=== PATIENT | male | born 1960 | race Caucasian/White ===

== ENCOUNTER 2019-08-11 08:47 | Inpatient (IN) ==
--- NOTE | 2019-08-05 09:51 | Anesthesiology Consultation ---
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 He denies traveling to any big cities or endemic areas. His company also has strict guidelines in which he follows (wears masks, social distances, does not go to any sites that have had positive Covid employees). No known contact with PUIs or Covid positive people. No current Covid related symptoms or history of Covid testing. Did discuss with Dr. Zambrano, since patient has not traveled to endemic areas and takes all precautions, will allow patient to proceed with surgery at this time pending his pre op labs show no significant issues History Surgery Operation Date: 08/11/19 11:35 Proposed Procedures p Left Total Knee Arthroplasty - Richie Pena MD Height/Weight Height: 6 ft Weight: 96.162 kg Allergies Allergy/AdvReac Type Severity Reaction Status Date / Time diclofenac Allergy Intermediate ITCHY, Verified 08/05/19 08:22 PASSED OUT Medications Home Medications Medication Instructions Recorded Confirmed Last Taken naproxen sodium [Aleve] 220 mg PO Q12H PRN 05/20/19 08/05/19 Unknown multivitamin 1 tab PO DAILY 08/05/19 08/05/19 Unknown Past Medical History Medical History DJD (degenerative joint disease) of knee Past Family History Family History Other No significant family history Past Surgical History Surgical History Hx of colonoscopy Hx of meniscectomy of right knee Hx of tonsillectomy Social History Smoking Status: Former smoker tobacco type: cigarettes Do You Dip or Chew Tobacco: No Smoking End Date: QUIT OVER 30 YEARS AGO Hx Alcohol Use: Yes Alcohol type: beer and hard liquor alcohol intake frequency: a few times a month Hx Substance Use: No Testing Electrocardiogram Date: 05/26/19 Findings: + NSR @ (72) Chest X-Ray Date: 05/26/19 Minimal left lung base opacities suggest atelectasis/scarring. Mild convex left curvature of the upper thoracic spine. Degenerative changes of the shoulders and spine. IMPRESSION: No acute process.
--- NOTE | 2019-08-05 15:03 | Communication Note ---
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 He has been to rural areas and denies any travel to any major [place] or [place] city. Given that he hasn't been to an endemic area felt it was appropriate to undergo surgery on 08/11/2019. He is a TKA so SAB could avoid general anesthesia and the subsequent 20/20 minute precaution. Having said that, ultimately it will be up to the discretion of the attending anesthesiologist if any additional precautions are warranted.
--- NOTE | 2019-08-08 14:59 | History & Physical Report ---
Date of Service August 08, 2019 Assessment & Plan (1) Primary osteoarthritis of left knee: Treatment options were discussed with the patient. Risks, benefits and alternatives to surgery including but not limited to infection, DVT, pain, stiffness, need for revision surgery, damage to blood vessels, damage to nerves, PE, , were discussed with the patient and they wish to proceed. Plan will be for left total knee arthroplasty on 08/11/19 at [facility]. Likely will proceed with right knee 1 month post left knee surgery if able. Surgery was rescheduled from May due to COVID-19 pandemic. Current COVID-19 status is unknown. Plan will be for aspirin 81mg BID x 30 days post operatively. Will plan on outpatient PT. All questions answered. He will follow up post operatively. History of Present Illness Chief Complaint: Left knee pain Primary Care Provider: Angelina Mendez DO Patient is a 58 year old male with no significant past medical history who presents to the office with bilateral knee pain. Pain is affecting his ability to carry out daily and leisure activities. He has failed conservative measures including anti-inflammatory medications, cortisone injections, and viscoelastic injections. He would like to proceed with left knee replacement. Patient denies headaches, sweats, fevers, chills, double vision, blurred vision, cough, sore throat, dysphagia, chest pain, sob, wheezing, n/v/d/c, numbness, tingling, fatigue, urinary symptoms, mood disorders. ROS positive for bilateral knee pain and stiffness. Allergies Allergy/AdvReac Type Severity Reaction Status Date / Time diclofenac Allergy Intermediate ITCHY, Verified 08/05/19 08:22 PASSED OUT Home Medications Home Medications Medication Instructions Recorded Confirmed Type naproxen sodium [Aleve] 220 mg PO Q12H PRN 05/20/19 08/05/19 History multivitamin 1 tab PO DAILY 08/05/19 08/05/19 History Past Med/Surg History Medical History DJD (degenerative joint disease) of knee Surgical History Hx of colonoscopy Hx of meniscectomy of right knee Hx of tonsillectomy Family History Other No significant family history Social History Preferred Language: Burundian Communication Ability: Effective Port Patrol Officer Required: No Beliefs That Will Affect Care: None Current Living Situation: Family Feels Safe at Home: Yes Smoking Status: Former smoker Tobacco Type: cigarettes ; Second Hand Exposure: No ; Hx Alcohol Use: Yes Alcohol type: beer and hard liquor Hx Substance Use: No Review of Systems All systems reviewed & are unremarkable except as noted in HPI & below Physical Exam Constitutional: well developed and well nourished; no acute distress Eyes: PERRL, conjunctivae normal, anicteric sclerae ENMT: external ear and nose normal, oropharynx normal Neck: trachea midline, no thyromegaly Respiratory: normal respiratory effort, lungs clear to auscultation Cardiovascular: RRR, no murmur, no edema Musculoskeletal: Left knee: Tenderness medial joint line. ROM 0-130 with crepitus. Stable to valgus and varus stress tests. Positive Nelly's. Varus alignment Skin: no rashes, warm and dry Neurologic: patellar DTR's 2+ bilat, sensation intact Psychiatric: A+Ox3, euthymic affect Results & Data Diagnostic Findings Left knee radiographs: Bone on bone medial compartment with periarticular osteophyte formation and subchondral sclerosis. Varus alignment
--- NOTE | 2019-08-10 13:30 | History & Physical Report ---
Date of Service August 10, 2019 Assessment & Plan (1) Primary osteoarthritis of right knee: Treatment options were discussed with the patient. Risks, benefits and alternatives to surgery including but not limited to infection, DVT, pain, stiffness, need for revision surgery, damage to blood vessels, damage to nerves, PE, , were discussed with the patient and they wish to proceed. Plan will be for right total knee arthroplasty on 08/11/19 at [facility]. Surgery was rescheduled from May due to COVID-19 pandemic. Current COVID-19 status is unknown. Plan will be for aspirin 81mg BID x 30 days post operatively. Will plan on outpatient PT. All questions answered. He will follow up post operatively. History of Present Illness Chief Complaint: Right knee pain Primary Care Provider: Angelina Mednez DO Patient is a 58 year old male with no significant past medical history who presents to the office with bilateral knee pain. Pain is affecting his ability to carry out daily and leisure activities. He has failed conservative measures including anti-inflammatory medications, cortisone injections, and viscoelastic injections. He would like to proceed with right knee replacement. Patient denies headaches, sweats, fevers, chills, double vision, blurred vision, cough, sore throat, dysphagia, chest pain, sob, wheezing, n/v/d/c, numbness, tingling, fatigue, urinary symptoms, mood disorders. ROS positive for bilateral knee pain and stiffness. Allergies Allergy/AdvReac Type Severity Reaction Status Date / Time diclofenac Allergy Intermediate ITCHY, Verified 08/05/19 08:22 PASSED OUT Home Medications Home Medications Medication Instructions Recorded Confirmed Type naproxen sodium [Aleve] 220 mg PO Q12H PRN 05/20/19 08/05/19 History multivitamin 1 tab PO DAILY 08/05/19 08/05/19 History Past Med/Surg History Medical History DJD (degenerative joint disease) of knee Surgical History Hx of colonoscopy Hx of meniscectomy of right knee Hx of tonsillectomy Family History Other No significant family history Social History Preferred Language: Greenlandic Communication Ability: Effective Charge Histotechnologist Required: No Beliefs That Will Affect Care: None Current Living Situation: Family Feels Safe at Home: Yes Smoking Status: Former smoker Tobacco Type: cigarettes ; Second Hand Exposure: No ; Hx Alcohol Use: Yes Alcohol type: beer and hard liquor Hx Substance Use: No Review of Systems All systems reviewed & are unremarkable except as noted in HPI & below Physical Exam Constitutional: well developed and well nourished; no acute distress Eyes: PERRL, conjunctivae normal, anicteric sclerae ENMT: external ear and nose normal, oropharynx normal Neck: trachea midline, no thyromegaly Respiratory: normal respiratory effort, lungs clear to auscultation Cardiovascular: RRR, no murmur, no edema Musculoskeletal: Right knee: Tenderness medial joint line. ROM 0-130 with crepitus. Stable to valgus and varus stress tests. Positive Nelly's. Varus alignment Skin: no rashes, warm and dry Neurologic: patellar DTR's 2+ bilat, sensation intact Psychiatric: A+Ox3, euthymic affect Results & Data Diagnostic Findings Right knee radiographs: Bone on bone medial compartment with periarticular osteophyte formation and subchondral sclerosis. Varus alignment
[~2019-08-11 08:47] MED LIST: ACETAMINOPHEN 500 MG TAB PO SCH; BUPIVACAINE 0.5 % 5 MG/1 ML PF 10ML VIAL ONE; CEFAZOLIN 2000MG 2,000 MG/15 ML SYR IV SCH; CeleBREX 200 MG CAP PO SCH; EPINEPHrine INJ 1 MG/ML AMP ONE; FAMOTIDINE 20 MG TAB PO SCH; GABAPENTIN 600 MG DOSE PO SCH; LR 500ML BOLUS, THEN 15ML/HR IV SCH; METOCLOPRAMIDE HCL 10 MG TABLET PO SCH; OXYCODONE HCL 10 MG TABCR (OXYCONTIN) PO SCH; ROPIVACAINE 0.5% 5 MG/ML 30 ML VIAL ONE; ROPIVACAINE 0.5% HCL/PF 150 MG, BUPIVACAINE 0.5% MPF 30 ML, EPINEPHrine 30MG/30ML (OR U... INFIL SCH; ROPIVACAINE 0.5% HCL/PF 150 MG, BUPIVACAINE 0.5% MPF 30 ML, EPINEPHrine 30MG/30ML (OR U... INSTIL SCH; TRANEXAMIC ACID 1,000 MG **IV Intra-op IV SCH; TRANEXAMIC ACID 1,000 MG **IV Pre-op IV SCH; TRANEXAMIC ACID 1,000 MG x 1 **For Topical Use TOP SCH; dexAMETHasone 4 MG TAB PO SCH
[2019-08-11] MEDS ORDERED: fentaNYL citrate 100 MCG/2 ML VIAL ONE (09:27)
[2019-08-11] MEDS ORDERED: PROPOFOL IV EMULSION 10 MG/ML 20 ML VIAL IV ONE ×4 (09:27→13:07)
[2019-08-11] MEDS ORDERED: LIDOCAINE HCL 2% 2 ML VIAL/AMP(20MG/ML) INFIL ONE (09:27)
[2019-08-11] MEDS ORDERED: MIDAZOLAM HCL 1 MG/ML 2ML VIAL ONE (09:27)
--- NOTE | 2019-08-11 10:13 | History & Physical Bridge Note ---
Date of Service August 11, 2019 History & Physical Bridge Note I have examined the patient, reviewed the History & Physical and in the interval since the performance of the History & Physical I have noted the following changes of clinical significance: Definitive plan is for the LEFT knee replacement
[2019-08-11] MEDS ORDERED: BACITRACIN INJ 50,000 UNIT VIAL ONE (10:57)
--- NOTE | 2019-08-11 13:15 | Operative Report ---
Post Operative Report Pre & Post Diagnosis Operation Date: 08/11/19 11:15 Pre-Op Diagnosis: LEFT KNEE OSTEOARTHRITIS Post-Op Diagnosis: LEFT KNEE OSTEOARTHRITIS I identified the patient and participated in the time-out.: Yes Procedure Operation Date: 08/11/19 11:15 Actual Procedures p Left Total Knee Arthroplasty(Left) - Richie Pena MD Surgeon Richie Pena MD Production Support Analyst Ismael Camacho PA-C Estimated Blood Loss 10 Findings Consistent with Post-Op Diagnosis Specimens Bone and tissue Drains None Anesthesia Type MAC Spinal Regional Complications none Disposition Accompanied Patient To Recovery: No Disposition: Recovery Room Indications The patient is a 58-year-old male with longstanding arthritic change in the left knee. He is [id number] medial compartment. He is failed conservative measures including injection, anti-inflammatories, rehab. He wishes to proceed with a left total knee arthroplasty Description of Procedure Risks benefits and alternatives of surgery including but not limited to infection, DVT, pain, stiffness, need for surgery, damage to blood vessels, damage to nerves or risks of anesthesia were discussed with the patient and they wished to proceed. The patient was identified and the laterality was confirmed and marked. They received a preoperative antibiotic as well as a spinal anesthetic and an abductor canal block. A well-padded tourniquet was applied and then the limb was prepped and draped in standard manner with ChloraPrep. The limb was exsanguinated and the tourniquet was inflated. I made a standard anterior incision. I sharply incised the skin then utilized Bovie electrocautery to achieve hemostasis. I made a medial parapatellar arthrotomy and mobilized the patella laterally. I then excised the anterior horns of the medial and lateral meniscus as well as the infrapatellar fat pad. I elevated a portion of the MCL off of the tibia. I then pinned into place a patient-matched distal femoral cutting guide. He had a significant preoperative flexion contracture of greater than 5 degrees. I therefore elected to take an additional 2 mm of distal femur. I made my distal femoral resection. I then pinned into place the 5 in 1 femoral cutting guide. I made my anterior, posterior and chamfer cuts. I then excised the cruciates and the remaining portions of the menisci. I then pinned into place a patient- matched tibial cutting guide and made my tibial resection. I then pinned into place the tibial plate a utilizing alignment nella to confirm rotation. I then cut for the post. Utilizing a lamina assistant brand manager and I then removed posterior osteophytes off the femur. I then placed a trial femur into position and cut for the trochlear component. I then sequentially trialed to size the polyethylene until there was good soft tissue balancing and range of motion. I then prepared the patella with a freehand cut utilizing sagittal saw. I sized and drilled for the patella. There was good tracking to the patella no lateral release was needed. All the trial components were removed. The deep tissues were anesthetized with an ortho mix solution. Then with Simplex HV with gentamicin cement, I cemented my definitive components. Definitive components, Marro[employer] Journey 2: Femur 7 Tibia 7 Poly 9 Patella 35 oval A betadine soak was performed. The arthrotomy was closed with interrupted #1 Vicryl suture subcutaneous tissue was closed with interrupted 2-0 Vicryl suture. The skin was closed with with ramu. An Acticoat and Joseph dressing were placed. Sterile dressings were applied. All needle and sponge counts were correct at the end of the procedure patient was transferred to the PACU in stable condition without apparent complication. The PA-C was necessary for assistance with procedure for assistance in positioning, prepping, draping, retraction and closure. I attest to the content of the Intraoperative Record and any orders documented therein. Any exceptions are noted below.
[2019-08-11] MEDS ORDERED: ePHEDrine sulfate 50 MG/ML AMP IV PRN (13:17)
[2019-08-11] MEDS ORDERED: ATROPINE SULFATE 0.1 MG/ML 10ML SYR IV PRN (13:17)
--- NOTE | 2019-08-11 14:13 | XRay Report ---
XR knee LT 1 or 2V routine CLINICAL HISTORY: Surgical Post Op COMPARISON: None. DISCUSSION: There are postsurgical changes of a total left knee arthroplasty and patellar resurfacing . The femoral and tibial components appear well seated. There are overlying skin ramu. There is ga s present within the soft tissues consistent with recent surgery. IMPRESSION: Postsurgical changes of a total left knee arthroplasty. ACT 112: Negative or not required by law. Electronically signed by: Blake Ball M.D. 08/11/2019 2:12 PM
--- NOTE | 2019-08-11 14:23 | Anesthesiology Progress Note ---
Date of Service August 11, 2019 Anesthesia Post Procedure Vital Signs Vital Signs: Temp Pulse Pulse Resp BP BP Pulse Ox 08/11/19 14:10 36.3 C L 70 13 102/71 93 08/11/19 14:00 81 14 107/76 94 08/11/19 13:50 82 17 107/74 99 08/11/19 13:42 36.2 C L 91 H 16 103/68 99 08/11/19 09:19 36.7 C 73 18 113/73 96 Pain Intensity Left Knee: Pain Intensity: 0 Transfer of Care Handoff Completed per policy Notes Mental Status: alert / awake / arousable Patient Amnestic to Procedure: Yes Nausea / Vomiting: adequately controlled Pain: adequately controlled Airway Patency, RR, SpO2: stable & adequate BP & HR: stable & adequate Hydration State: stable & adequate Neuraxial Anesthesia: was administered and sensory block is resolving Anesthetic Complications: no major complications apparent
[2019-08-11] MEDS ORDERED: TAMSULOSIN HCL 0.4 MG CAP PO PRN (14:42)
[2019-08-11] MEDS ORDERED: HYDROmorphone INJ 0.5 MG/0.5 ML SYR IV PRN (14:42)
[2019-08-11] MEDS: SODIUM CHLORIDE 0.9% 1000ML 1,000 ML IV SCH (16:19)
[2019-08-11] MEDS: ACETAMINOPHEN 500 MG TAB PO SCH ×2 (16:20→21:36)
[2019-08-11] MEDS ORDERED: bisacodyL 10 MG SUPP PR PRN (16:49)
[2019-08-11] MEDS ORDERED: MAGNESIUM HYDROXIDE SUSP 30 ML UDC PO PRN (16:49)
[2019-08-11] MEDS ORDERED: METOCLOPRAMIDE HCL INJ 5 MG/ML 2 ML VIAL IV PRN (16:49)
[2019-08-11] MEDS ORDERED: NALOXONE HCL 0.4 MG/1 ML VIAL/CARP IV PRN (16:49)
[2019-08-11] MEDS: CEFAZOLIN 2000MG 2,000 MG/15 ML SYR IV SCH (17:27)
[2019-08-11] MEDS: ONDANSETRON INJ 2 MG/ML 2 ML VIAL IV PRN ×2 (17:31→21:43)
[2019-08-11] MEDS ORDERED: OXYCODONE HCL 10 MG TABCR (OXYCONTIN) PO SCH (21:00)
[2019-08-11] MEDS ORDERED: SENNA 8.6 MG TAB PO SCH (21:00)
[2019-08-11] MEDS: ASPIRIN 81 MG ECTAB PO SCH (21:36)
[2019-08-11] MEDS: OXYCODONE HCL IR 5 MG TAB (IMMEDIATE RELEASE) PO PRN (21:42)
[2019-08-11] MEDS: DOCUSATE SODIUM 100 MG CAP PO SCH (21:42)
[2019-08-12] MEDS: CEFAZOLIN 2000MG 2,000 MG/15 ML SYR IV SCH (01:26)
[2019-08-12] MEDS: SODIUM CHLORIDE 0.9% 1000ML 1,000 ML IV SCH (05:54)
[2019-08-12] MEDS: OXYCODONE HCL IR 5 MG TAB (IMMEDIATE RELEASE) PO PRN (05:59)
[2019-08-12] MEDS: ACETAMINOPHEN 500 MG TAB PO SCH (05:59)
--- NOTE | 2019-08-12 07:12 | Orthopedic Progress Note ---
Date of Service August 12, 2019 Assessment & Plan (1) Primary osteoarthritis of left knee: POD#1 Left TKA -Pain management -PT/OT -DVT prophylaxis-SCDs, TEDs, ASA 81mg BID x 30 days -AM labs pending -D/C planning-home with OPPT likely later today as long as labs stable and PT goes well. Admission and Anticipated Discharge Date Admission Date: August 11, 2019 Subjective Patient is POD#1 left TKA. He is doing well, pain controlled and wnl post total knee. He has been up ambulating without difficulty. Denies chest pain, sob, dizziness, light headedness, n/v/d. Did have some nausea yesterday but has resolved. Review of Systems Review of Systems: All systems reviewed & are unremarkable except as noted in HPI & below Physical Exam Physical Exam: Left knee dressing is c/d/i, toes mobile, good dorsiflexion, no calf tenderness. Distally n/v status and sensation intact. SHARON wound vac in place. Constitutional: WD/WN, vitals as above no acute distress Results & Data ([facility]) Vital Signs (Past 12 Hours) Vital Signs Temp Pulse Resp BP BP Pulse Ox 08/12/19 03:09 36.8 C 87 16 118/72 95 08/11/19 23:22 36.9 C 88 14 123/73 94 08/11/19 21:21 36.7 C 71 18 133/76 96
[2019-08-12 07:38] LABS: Hematocrit (blood only) 38.6 % (42-52); Hemoglobin 13.5 g/dL (14.0-18.0); Mean Corpuscular Hemoglobin 30.3 pg (25-34); Mean Corpuscular Volume 86.5 fL (80-100); Mean Platelet Volume 9.9 fL (7.4-10.4); Platelet Count 222 K/uL (130-400); RDW Coefficient of Variation 12.9 % (11.5-14.5); RDW Standard Deviation 41.1 fL (36.4-46.3); Red Blood Count 4.46 M/uL (4.7-6.1); White Blood Count 14.84 K/uL (4.8-10.8)
[2019-08-12 08:12] LABS: BUN Creatinine Ratio 21.9 (10-20); Calcium 9.1 mg/dl (8.5-10.1); Creatinine Clr Calc Pharmacy 92.7 ml/min; Est GFR (African American) 89.5; Est GFR (Non-African American) 77.2; Potassium 4.1 mmol/L (3.5-5.1)
[2019-08-12] MEDS: DOCUSATE SODIUM 100 MG CAP PO SCH (08:31)
[2019-08-12] MEDS: ASPIRIN 81 MG ECTAB PO SCH (08:31)
[2019-08-12] MEDS ORDERED: MULTIVITAMIN TAB PO SCH (09:00)
--- NOTE | 2019-08-12 18:23 | Discharge Summary ---
Date of Service August 12, 2019 Admission HPI Per Admitting Provider Patient is a 58 year old male with no significant past medical history who presents to the office with bilateral knee pain. Pain is affecting his ability to carry out daily and leisure activities. He has failed conservative measures including anti-inflammatory medications, cortisone injections, and viscoelastic injections. He would like to proceed with right knee replacement. Patient denies headaches, sweats, fevers, chills, double vision, blurred vision, cough, sore throat, dysphagia, chest pain, sob, wheezing, n/v/d/c, numbness, tingling, fatigue, urinary symptoms, mood disorders. ROS positive for bilateral knee pain and stiffness. Admission Exam Per Admitting Provider Constitutional: well developed and well nourished; no acute distress Eyes: PERRL, conjunctivae normal, anicteric sclerae ENMT: external ear and nose normal, oropharynx normal Neck: trachea midline, no thyromegaly Respiratory: normal respiratory effort, lungs clear to auscultation Cardiovascular: RRR, no murmur, no edema Musculoskeletal: Left knee: Tenderness medial joint line. ROM 0-130 with crepitus. Stable to valgus and varus stress tests. Positive Nelly's. Varus alignment Skin: no rashes, warm and dry Neurologic: patellar DTR's 2+ bilat, sensation intact Psychiatric: A+Ox3, euthymic affect Principal Diagnosis Left knee osteoarthritis Discharge Exam Constitutional WD/WN, vitals as above well developed and well nourished; no acute distress Eyes PERRL, conjunctivae normal, anicteric sclerae ENMT external ear and nose normal, oropharynx normal Neck trachea midline, no thyromegaly Respiratory normal respiratory effort, lungs clear to auscultation Cardiovascular RRR, no murmur, no edema Skin no rashes, warm and dry Neurologic patellar DTR's 2+ bilat, sensation intact Psychiatric A+Ox3, euthymic affect Discharge Data Allergies Allergy/AdvReac Type Severity Reaction Status Date / Time diclofenac Allergy Intermediate ITCHY, Verified 08/11/19 09:15 PASSED OUT Consultations 08/11/19 14:42 Consult Case Management - Discharge Planning Routine Procedures Performed Operation Date: 08/11/19 11:15 Actual Procedures p Left Total Knee Arthroplasty(Left) - Richie Pena MD Ordered Studies 08/11/19 05:00 US - OR guided needle placemen Routine Hospital Course (1) Primary osteoarthritis of left knee: Patient presented for same day admission following left total knee arthroplasty on 08/11/19. He tolerated procedure well. The Patient had an uneventful hospital course. Post-operatively, his activity was progressed and well tolerated. They participated in PT with ambulation distance of 425 and 375 feet. ROM of operative knee reached 85 degrees. Labs remained stable- lowest hemoglobin recorded: 13.5. Pain controlled on oral medications. Please refer to daily progress notes and PT notes for complete details. After exam on 08/12/19, patient was felt to be stable for discharge home with plans on home health PT. Patient will f/u in the office in about 2 weeks for further evaluation including x-rays and incision check, sooner if having any issues or concerns. Lab Results 08/11/19 08/12/19 08/12/19 Range/Units 09:05 07:19 07:19 WBC 14.84 H (4.8-10.8) K/uL RBC 4.46 L (4.7-6.1) M/uL Hgb 13.5 L (14.0-18.0) g/dL Hct 38.6 L (42-52) % MCV 86.5 (80-100) fL MCH 30.3 (25-34) pg MCHC 35.0 (32-36) g/dL RDW Std Deviation 41.1 (36.4-46.3) fL RDW Coeff of Rob 12.9 (11.5-14.5) % Plt Count 222 (130-400) K/uL MPV 9.9 (7.4-10.4) fL Sodium (136-145) mmol/L Potassium (3.5-5.1) mmol/L Chloride (98-107) mmol/L Carbon Dioxide (21-32) mmol/L Anion Gap (3-11) BUN (7-18) mg/dl Creatinine (0.6-1.4) mg/dl Est Cr Clr Drug Dosing ml/min Est GFR ( Amer) Est GFR (Non-Af Amer) BUN/Creatinine Ratio (10-20) Glucose (70-99) mg/dl Calcium (8.5-10.1) mg/dl Hepatitis C Ab Screen Neg (Neg) Blood Type A Positive Antibody Screen NEGATIVE 08/12/19 Range/Units 07:19 WBC (4.8-10.8) K/uL RBC (4.7-6.1) M/uL Hgb (14.0-18.0) g/dL Hct (42-52) % MCV (80-100) fL MCH (25-34) pg MCHC (32-36) g/dL RDW Std Deviation (36.4-46.3) fL RDW Coeff of Rob (11.5-14.5) % Plt Count (130-400) K/uL MPV (7.4-10.4) fL Sodium 137 (136-145) mmol/L Potassium 4.1 (3.5-5.1) mmol/L Chloride 105 (98-107) mmol/L Carbon Dioxide 26 (21-32) mmol/L Anion Gap 6.0 (3-11) BUN 23 H (7-18) mg/dl Creatinine 1.07 (0.6-1.4) mg/dl Est Cr Clr Drug Dosing 92.7 ml/min Est GFR ( Amer) 89.5 Est GFR (Non-Af Amer) 77.2 BUN/Creatinine Ratio 21.9 H (10-20) Glucose 112 H (70-99) mg/dl Calcium 9.1 (8.5-10.1) mg/dl Hepatitis C Ab Screen (Neg) Blood Type Antibody Screen Total Time Total Time Spent Total Time Spent (In Minutes): 20 Discharge Plan Discharge Items Patient Disposition: Home - Self-Care Reason For Visit: LEFT KNEE OSTEOARTHRITIS Discharge Diagnosis: Left knee osteoarthritis Activity: Per Instructions section Non-emergency contact: Surgeon Call non-emergency contact if: you have any medication questions, your pain is not controlled, your pain is unusual for you, your pain is concerning for you, you have a fever, your temperature is above 101, your wound has increased redness, your wound has increased drainage and your wound pain has increased Follow-up/Referrals: Angelina Mendez DO [Primary Care Provider] - Diet: Regular Addtl Attending Provider Instructions: ACTIVITY RECOMMENDATIONS: SELF CARE INSTRUCTIONS AFTER TOTAL KNEE REPLACEMENT A. You may need to continue a physical therapy program after discharge from the hospital. There are several options available to you. Your doctor will assist you in selecting the best one for you. 1. An out-patient facility 2 to 3 times a week for therapy or home therapy. 2. Continue working on all exercises taught to you in the hospital. Your goals should be to increase bending of your knee to 90 degrees and beyond and to fully straighten your knee. B. You may progress at your own pace from walking with a walker or crutches to a cane; then to no assistive devices. C. Make walking a part of your daily routine. Be up as much as comfortable with rest periods throughout the day. Rest with leg elevation is very important. Use the ice wrap frequently for the first 3-4 weeks. D. There are no restrictions on activities. You may ride in a car, shop, participate in lusterer and all social activities. E. Wear the long elastic stockings (JAYSON hose) 20 hours a day for 2 weeks after surgery. They can be removed several times a day for laundering and for a bath. F. You may shower, no tub baths until cleared by your doctor. SPECIAL CARE INSTRUCTIONS: VERY IMPORTANT TO READ AND REVIEW A. There are a few signs you need to watch for after you are home. Call [facility] [place] if you notice any of the followin. Increased severe knee pain. Some pain is expected especially when you exercise. 2. Increased swelling in your leg or knee; pain or swelling of the calf muscle in either lower leg. 3. Any fluid drainage from the incision. 4. Shortness of breath or chest pain. B. Please call [facility] at if you have any concerns or questions about your operation or recovery. The doctor or his nurse will return your call promptly. C. You must take antibiotics before dental work, bladder, bowel or other surgery. Your doctor will provide you with a permanent care to carry describing this precaution. IMPORTANT: * REMEMBER TO TAKE ASPIRIN, 81 MG, TWICE DAILY FOR 4 WEEKS UNLESS OTHERWISE DIRECTED. THIS IS YOUR BLOOD THINNER. * HIGH RISK PATIENTS MAY BE PRESCRIBED A STRONGER BLOOD THINNER. THIS WILL BE PROVIDED AT DISCHARGE. * CALL IF INCREASED PAIN, REDNESS, DRAINAGE OR FEVER GREATER THAT 101. * WEAR JAYSON HOSE 20 HOURS PER DAY FOR 2 WEEKS. This is a large suction dressing covering your incision. This will help pull any excess drainage from the wound and allow your incision to heal properly. You may shower with this if you can keep the unit outside of the shower. If any bleeding or leakage is noted please call your doctor's office. This will remain on your incision for 7 days and then should be removed. This can be done yourself or by the home nursing staff if applicable. The entire unit is disposable once removed. Once removed, keep incision clean and dry. If redness or drainage is noted, please call your surgeon. FOLLOW UP VISIT: If appointment is not already scheduled: Please call [facility] to make a follow-up appointment for 2 weeks after your surgery at . Pending Studies at Discharge: No Stand-Alone Forms: [facility] [employer], Opioid Pain Management, Smoking Cessation Medications and DC Order Prescriptions: New aspirin 81 mg Tablet,Delayed Release (Dr/Ec) 81 mg PO BID Qty: 60 RF: 0 acetaminophen 500 mg Tablet 1,000 mg PO Q8 Qty: 60 RF: 0 oxycodone 5 mg Tablet 5 - 10 mg PO .Q4H-6H MDD 6 PRN (Reason: pain) Qty: 30 RF: 0 naproxen 500 mg tablet 500 mg PO BID Qty: 60 RF: 0 Continued multivitamin Tablet 1 tab PO DAILY RF: 0 Discontinued naproxen sodium [Aleve] 220 mg Tablet 220 mg PO Q12H PRN (Reason: Pain) RF: 0 Discharge Orders: Discharge Order (Routine); Ordered 08/12/19 Ordered By: Ismael Hammer/Other Patient Handouts: DVT Post Op Prevention Admission Data Admit Date/Time: 08/11/19 14:40 Attending Provider: Richie Pena Admit Provider: Richie Pena Primary Care Provider: Angelina Mendez Other Providers: [facility],Home Healthcare Other Interventions: Discharge Summary Assessment (RN) Last Done: 08/12/19 08:19 DC Date/Time DO NOT enter until pt leaves facility: 08/12/19 12:53
== END 2019-08-12 12:53 | disposition home health service (06) | DRG 470 ==
LOC: ASU 08:47 → 3E 14:40

== ENCOUNTER 2019-09-08 05:46 | Inpatient (IN) ==
--- NOTE | 2019-08-24 09:15 | History & Physical Report ---
"Date of Service August 24, 2019 Assessment & Plan (1) Primary osteoarthritis of right knee: Treatment options were discussed with the patient. Risks, benefits and alternatives to surgery including but not limited to infection, DVT, pain, stiffness, need for revision surgery, damage to blood vessels, damage to nerves, PE, , were discussed with the patient and they wish to proceed. Plan will be for right total knee arthroplasty on 09/08/19 at [facility]. Surgery was rescheduled from May due to COVID-19 pandemic. Current COVID-19 status is unknown, testing will be completed preop. Plan will be for aspirin 81mg BID x 30 days post operatively. Will plan on outpatient PT. All questions answered. He will follow up post operatively. History of Present Illness Chief Complaint: Right knee pain Primary Care Provider: Angelina Mendez DO Patient is a 58 year old male with no significant past medical history who presents to the office with bilateral knee pain. Pain is affecting his ability to carry out daily and leisure activities. He has failed conservative measures including anti-inflammatory medications, cortisone injections, and viscoelastic injections. He would like to proceed with right knee replacement. He underwent left total knee replacement on 08/11/19 and is doing well. Patient denies headaches, sweats, fevers, chills, double vision, blurred vision, cough, sore throat, dysphagia, chest pain, sob, wheezing, n/v/d/c, numbness, tingling, fatigue, urinary symptoms, mood disorders. ROS positive for right knee pain and stiffness. Allergies Allergy/AdvReac Type Severity Reaction Status Date / Time diclofenac Allergy Intermediate ITCHY, Verified 08/11/19 09:15 PASSED OUT Home Medications Home Medications Medication Instructions Recorded Confirmed Type multivitamin 1 tab PO DAILY 08/05/19 08/11/19 History acetaminophen 1,000 mg PO Q8 #60 tab 08/12/19 Rx aspirin 81 mg PO BID #60 tab 08/12/19 Rx naproxen 500 mg PO BID #60 tab 08/12/19 Rx oxycodone 5 - 10 mg PO .Q4H-6H PRN #30 tab 08/12/19 Rx MDD 6 Past Med/Surg History Medical History DJD (degenerative joint disease) of knee Surgical History (Updated 08/11/19 @ 09:15 by Lucrecia Griffin RN) Hx of colonoscopy Hx of meniscectomy of right knee TIMES TWO Hx of tonsillectomy Social History Preferred Language: Uzbek Communication Ability: Effective Public Health Worker Required: No Beliefs That Will Affect Care: None marital status: Current Living Situation: Family Feels Safe at Home: Yes Smoking Status: Former smoker Tobacco Type: cigarettes ; Second Hand Exposure: No ; Hx Alcohol Use: Yes Alcohol type: beer and hard liquor Hx Substance Use: No Review of Systems All systems reviewed & are unremarkable except as noted in HPI & below Physical Exam Constitutional: well developed and well nourished; no acute distress Eyes: PERRL, conjunctivae normal, anicteric sclerae ENMT: external ear and nose normal, oropharynx normal Neck: trachea midline, no thyromegaly Respiratory: normal respiratory effort, lungs clear to auscultation Cardiovascular: RRR, no murmur, no edema Musculoskeletal: Right knee: Tenderness medial joint line. ROM 5-125 with crepitus. Stable to valgus and varus stress tests. Positive Nelly's. Varus alignment Skin: no rashes, warm and dry Neurologic: patellar DTR's 2+ bilat, sensation intact Psychiatric: A+Ox3, euthymic affect Results & Data [place] [address] / Director: Richie Engle M.D. Clinical Laboratory Report Name: JEN DOLAN Acct: [id number] Status: DIS IN : 1960 [facility] Date: 08/11/19 Age: 58 Sex: M Dis Date: 08/12/19 Loc: Medical/Surgical/Ortho [address] [place] [address]/Bed: E322-1 Spec : [id number] Collected: 08/12/19 Received: 08/12/[address]: Ismael Camacho Copy To: Richie Pena M.D. Ordered: CBC Test Result Flag Reference Site WBC | 14.84 | H | 4.8-10.8 K/uL | RBC | 4.46 | L | 4.7-6.1 M/uL | Hgb | 13.5 | L | 14.0-18.0 g/dL | Hct | 38.6 | L | 42-52 % | MCV | 86.5 | | 80-100 fL | MCH | 30.3 | | 25-34 pg | MCHC | 35.0 | | 32-36 g/dL | RDW Std Dev | 41.1 | | 36.4-46.3 fL | RDW Coeff Rob | 12.9 | | 11.5-14.5 % | Plt | 222 | | 130-400 K/uL | MPV | 9.9 | | 7.4-10.4 [place] [address] / Director: Richie Engle M.D. Clinical Laboratory Report Name: JEN DOLAN Acct: [id number] Status: DIS IN : 1960 [facility] Date: 08/11/19 Age: 58 Sex: M Dis Date: 08/12/19 Loc: Medical/Surgical/Ortho [facility] Rm/Bed: E322-1 Spec : [id number] Collected: 08/12/19 Received: 08/12/[address]: Ismael Camacho Copy To: Richie Pena M.D. Ordered: BMP Test Result Flag Reference Site Na | 137 | | 136-145 mmol/L | K | 4.1 | | 3.5-5.1 mmol/L | Cl | 105 | | 98-107 mmol/L | CO2 | 26 | | 21-32 mmol/L | Gap | 6.0 | | 3-11 | BUN | 23 | H | 7-18 mg/dl | Creat | 1.07 | | 0.6-1.4 mg/dl | Creat Calc PHA | 92.7 | | ml/min | | Est. Creatinine Clearance (Mod Cockcroft-Gault) for pharmacy | dosing purposes. EGFR AA | 89.5 | | | | Units: ml/min per 1.73 meters squared | | The estimated GFR (CKD-EPI equation) has not been rodger dated | for inpatient settings and may not be an accurate reflection | of renal function in critically ill patients or those with | rapidly changing renal function (e.g. BAKARI). EGFR TRENA | 77.2 | | | | Units: ml/min per 1.73 meters squared | | The estimated GFR (CKD-EPI equation) has not been validated | for inpatient settings and may not be an accurate reflection | of renal function in critically ill patients or those with | rapidly changing renal function (e.g. BAKARI). BUN Creat Ratio | 21.9 | H | 10-20 | Glu | 112 | H | 70-99 mg/dl | Ca | 9.1 | | 8.5-10.1 mg/dl | Diagnostic Findings Right knee radiographs: Bone on bone medial compartment with periarticular osteophyte formation and subchondral sclerosis. Varus alignment"
--- NOTE | 2019-09-01 11:17 | Anesthesiology Consultation ---
Date of Service September 01, 2019 Assessment & Plan Chart Review Chart Review: Acceptable Risk for Surgery and Patient NOT seen in Pre Admission Testing low risk COVID screening. COVID test 09/05/19 ordered. No sxs. Travels to [facility] for employment only. Consults Requested none History Surgery Operation Date: 09/08/19 11:45 Proposed Procedures p Right Total Knee Arthroplasty - Richie Pena MD Height/Weight Height: 6 ft Weight: 96.162 kg Allergies Allergy/AdvReac Type Severity Reaction Status Date / Time diclofenac Allergy Unknown ITCHY, Verified 09/01/19 08:00 PASSED OUT Medications Home Medications Medication Instructions Recorded Confirmed Last Taken multivitamin 1 tab PO DAILY 08/05/19 09/01/19 08/07/19 aspirin 81 mg PO BID #60 tab 08/12/19 09/01/19 Unknown acetaminophen 1,000 mg PO UD PRN 09/01/19 09/01/19 Unknown naproxen 500 mg PO BID 09/01/19 09/01/19 Unknown oxycodone 5 - 10 mg PO UD PRN MDD 6 09/01/19 09/01/19 Unknown Past Medical History Medical History DJD (degenerative joint disease) of knee Past Family History Family History Other No significant family history Past Surgical History Surgical History History of total left knee replacement 07/2019 Hx of colonoscopy Hx of meniscectomy of right knee TIMES TWO Hx of tonsillectomy Social History Smoking Status: Former smoker tobacco type: cigarettes Do You Dip or Chew Tobacco: No Smoking End Date: >30 YR AGO Hx Alcohol Use: Yes Alcohol type: beer and hard liquor alcohol intake frequency: a few times a month Hx Substance Use: No substance use type: does not use Testing Laboratory Results 08/12/19 H/H 13.5/38.6 PLT 222 K 4.1 BUN 23 creat 1.07 gluc 112 HgbA1c 5.6 Electrocardiogram Date: 05/26/19 Findings: + NSR @ (72bpm) Chest X-Ray Date: 05/26/19 Findings: + NAD
[2019-09-08] MEDS ORDERED: ACETAMINOPHEN 500 MG TAB PO SCH (06:00)
[2019-09-08] MEDS ORDERED: dexAMETHasone 4 MG TAB PO SCH (06:00)
[2019-09-08] MEDS ORDERED: TRANEXAMIC ACID 1,000 MG **IV Intra-op IV SCH (06:00)
[2019-09-08] MEDS ORDERED: FAMOTIDINE 20 MG TAB PO SCH (06:00)
[2019-09-08] MEDS ORDERED: CeleBREX 200 MG CAP PO SCH (06:00)
[2019-09-08] MEDS ORDERED: ROPIVACAINE 0.5% HCL/PF 150 MG, BUPIVACAINE 0.5% MPF 30 ML, EPINEPHrine 30MG/30ML (OR U... INSTIL SCH ×2 (06:00)
[2019-09-08] MEDS ORDERED: GABAPENTIN 600 MG DOSE PO SCH (06:00)
[2019-09-08] MEDS ORDERED: METOCLOPRAMIDE HCL 10 MG TABLET PO SCH (06:00)
[2019-09-08] MEDS ORDERED: TRANEXAMIC ACID 1,000 MG **IV Pre-op IV SCH (06:00)
[2019-09-08] MEDS ORDERED: LR 500ML BOLUS, THEN 15ML/HR IV SCH (06:00)
[2019-09-08] MEDS ORDERED: CEFAZOLIN 2000MG 2,000 MG/15 ML SYR IV SCH ×2 (06:00→11:48)
[2019-09-08] MEDS ORDERED: BUPIVACAINE 0.5 % 5 MG/1 ML PF 10ML VIAL ONE (06:23)
[2019-09-08] MEDS ORDERED: ONDANSETRON INJ 2 MG/ML 2 ML VIAL IV PRN ×2 (06:42→11:48)
[2019-09-08] MEDS ORDERED: ePHEDrine sulfate 50 MG/ML AMP IV PRN (06:42)
[2019-09-08] MEDS ORDERED: ATROPINE SULFATE 0.1 MG/ML 10ML SYR IV PRN (06:42)
[2019-09-08] MEDS ORDERED: fentaNYL citrate 100 MCG/2 ML VIAL IV PRN (06:42)
--- NOTE | 2019-09-08 06:52 | History & Physical Bridge Note ---
Date of Service September 08, 2019 History & Physical Bridge Note I have examined the patient, reviewed the History & Physical and in the interval since the performance of the History & Physical I have noted the following changes of clinical significance: no changes noted
[2019-09-08] MEDS ORDERED: MIDAZOLAM HCL 1 MG/ML 2ML VIAL ONE (06:53)
[2019-09-08] MEDS ORDERED: fentaNYL citrate 100 MCG/2 ML VIAL ONE (06:53)
[2019-09-08] MEDS ORDERED: LIDOCAINE HCL 2% 2 ML VIAL/AMP(20MG/ML) INFIL ONE (06:53)
[2019-09-08] MEDS ORDERED: PROPOFOL IV EMULSION 10 MG/ML 20 ML VIAL IV ONE ×2 (06:53→09:47)
[2019-09-08] MEDS ORDERED: BACITRACIN INJ 50,000 UNIT VIAL ONE (07:12)
--- NOTE | 2019-09-08 10:11 | Operative Report ---
Post Operative Report Pre & Post Diagnosis Operation Date: 09/08/19 07:45 Pre-Op Diagnosis: RIGHT KNEE OSTEOARTHRITIS Post-Op Diagnosis: RIGHT KNEE OSTEOARTHRITIS I identified the patient and participated in the time-out.: Yes Procedure Operation Date: 09/08/19 07:45 Actual Procedures p Right Total Knee Arthroplasty, Cemented(Right) - Richie Pena MD Surgeon Richie Pena MD Technical Services Consultant Ismael Camacho PA-C Estimated Blood Loss 20 Findings Consistent with Post-Op Diagnosis Specimens Bone and tissue Drains None Anesthesia Type MAC Spinal Regional Complications none Disposition Accompanied Patient To Recovery: No Disposition: Recovery Room Indications The patient is a 58-year-old male much arthritic change the right knee. Is [id number] medial compartment with arthritic change throughout all 3 compartments. He is failed conservative measures including injection, anti- inflammatories, rehab. He wishes to proceed with right total knee arthroplasty. Description of Procedure Risks benefits and alternatives of surgery including but not limited to infection, DVT, pain, stiffness, need for surgery, damage to blood vessels, damage to nerves or risks of anesthesia were discussed with the patient and they wished to proceed. The patient was identified and the laterality was confirmed and marked. They received a preoperative antibiotic as well as a spinal anesthetic and an abductor canal block. A well-padded tourniquet was applied and then the limb was prepped and draped in standard manner with ChloraPrep. The limb was exsanguinated and the tourniquet was inflated. I made a standard anterior incision. I sharply incised the skin then utilized Bovie electrocautery to achieve hemostasis. I made a medial parapatellar arthrotomy and mobilized the patella laterally. I then excised the anterior horns of the medial and lateral meniscus as well as the infrapatellar fat pad. I elevated a portion of the MCL off of the tibia. I then pinned into place a patient-matched distal femoral cutting guide. He had a significant preoperative flexion contracture. I took an additional 2 mm off of the distal femur. Made the adjustments for this and made my distal femoral resection. I then pinned into place the 5 in 1 femoral cutting guide. I made my anterior, posterior and chamfer cuts. I then excised the cruciates and the remaining portions of the menisci. I then pinned into place a patient- matched tibial cutting guide and made my tibial resection. He had significant wear on the medial side and we did not adequately resect into the bone on the medial side. I took an additional 2 mm off of the tibia. There was still some sclerotic bone left in the medial side but we had adequate removal of the deformity. I drilled several pin holes into the sclerotic bone. I then pinned into place the tibial plate a utilizing alignment nella to confirm rotation. I then cut for the post. Utilizing a lamina engineering team supervisor and I then removed posterior osteophytes off the femur. I then placed a trial femur into position and cut for the trochlear component. I then sequentially trialed to size the polyethylene until there was good soft tissue balancing and range of motion. I then prepared the patella with a freehand cut utilizing sagittal saw. I sized and drilled for the patella. There was good tracking to the patella no lateral release was needed. All the trial components were removed. The deep tissues were anesthetized with an ortho mix solution. Then with Simplex HV with gentamicin cement, I cemented my definitive components. Definitive components, Marroquin and Nephew Pranay 2: Femur 7 Tibia 7 Poly 9 Patella 35 oval A betadine soak was performed. The arthrotomy was closed with interrupted #1 Vicryl suture subcutaneous tissue was closed with interrupted 2-0 Vicryl suture. The skin was closed with with ramu. An Acticoat and Joseph dressing were placed. Sterile dressings were applied. All needle and sponge counts were correct at the end of the procedure patient was transferred to the PACU in stable condition without apparent complication. The PA-C was necessary for assistance with procedure for assistance in positioning, prepping, draping, retraction and closure. I attest to the content of the Intraoperative Record and any orders documented therein. Any exceptions are noted below.
--- NOTE | 2019-09-08 10:36 | XRay Report ---
TWO VIEWS RIGHT KNEE CLINICAL HISTORY: Postoperative examination. FINDINGS: AP and crosstable lateral portable views of the right knee are obtained. A right knee arthr oplasty is in near anatomic alignment. There has been undersurface remodeling of the patella. No acut e fracture is seen. There are expected postoperative changes around the knee including skin clips, s oft tissue edema, and subcutaneous gas. IMPRESSION: Expected postoperative changes status post right knee arthroplasty. No acute fracture is seen. ACT 112: Negative or not required by law. Electronically signed by: Andrew Fernandes M.D. 09/08/2019 10:35 AM
--- NOTE | 2019-09-08 10:49 | Anesthesiology Progress Note ---
Date of Service September 08, 2019 Anesthesia Post Procedure Vital Signs Vital Signs: Temp Pulse Pulse Resp BP BP Pulse Ox 09/08/19 10:45 79 20 102/68 94 09/08/19 10:35 74 16 102/72 96 09/08/19 10:25 79 15 95/67 L 95 09/08/19 10:15 84 14 102/63 95 09/08/19 10:08 97.7 F 85 18 100/63 97 09/08/19 07:08 98.1 F 77 18 128/87 97 09/08/19 06:20 98.1 F 77 18 128/84 99 Pain Intensity Right Knee: Pain Intensity: 0 Transfer of Care Handoff Completed per policy Notes Mental Status: alert / awake / arousable and participated in evaluation Patient Amnestic to Procedure: Yes Nausea / Vomiting: adequately controlled Pain: adequately controlled Airway Patency, RR, SpO2: stable & adequate BP & HR: stable & adequate Hydration State: stable & adequate Neuraxial Anesthesia: was administered and sensory block is resolving Anesthetic Complications: no major complications apparent and Pt Satisfied with anesthetic care
[2019-09-08] MEDS ORDERED: TAMSULOSIN HCL 0.4 MG CAP PO PRN (11:48)
[2019-09-08] MEDS ORDERED: HYDROmorphone INJ 0.5 MG/0.5 ML SYR IV PRN (11:48)
[2019-09-08] MEDS ORDERED: bisacodyL 10 MG SUPP PR PRN (11:48)
[2019-09-08] MEDS ORDERED: METOCLOPRAMIDE HCL INJ 5 MG/ML 2 ML VIAL IV PRN (11:48)
[2019-09-08] MEDS ORDERED: NALOXONE HCL 0.4 MG/1 ML VIAL/CARP IV PRN (11:48)
[2019-09-08] MEDS ORDERED: MAGNESIUM HYDROXIDE SUSP 30 ML UDC PO PRN (11:48)
[2019-09-08] MEDS: SODIUM CHLORIDE 0.9% 1000ML 1,000 ML IV SCH ×2 (12:19→21:01)
[2019-09-08] MEDS: ACETAMINOPHEN 500 MG TAB PO SCH ×2 (13:00→21:01)
[2019-09-08] MEDS: OXYCODONE HCL IR 5 MG TAB (IMMEDIATE RELEASE) PO PRN ×3 (16:18→21:51)
[2019-09-08] MEDS: CEFAZOLIN 2000MG 2,000 MG/15 ML SYR IV SCH ×2 (16:21→23:06)
[2019-09-08] MEDS: NAPROXEN 250 MG TAB PO SCH (20:02)
[2019-09-08] MEDS: ASPIRIN 81 MG ECTAB PO SCH (20:02)
[2019-09-08] MEDS: DOCUSATE SODIUM 100 MG CAP PO SCH (20:02)
[2019-09-08] MEDS ORDERED: SENNA 8.6 MG TAB PO SCH (21:00)
[2019-09-09] MEDS: OXYCODONE HCL IR 5 MG TAB (IMMEDIATE RELEASE) PO PRN ×2 (04:04→11:53)
[2019-09-09] MEDS: ACETAMINOPHEN 500 MG TAB PO SCH (05:21)
[2019-09-09 06:00] LABS: Hematocrit (blood only) 34.1 % (42-52); Hemoglobin 11.2 g/dL (14.0-18.0); Mean Corpuscular Hemoglobin 28.8 pg (25-34); Mean Corpuscular Hgb Conc 32.8 g/dL (32-36); Mean Corpuscular Volume 87.7 fL (80-100); Mean Platelet Volume 9.2 fL (7.4-10.4); Platelet Count 250 K/uL (130-400); RDW Coefficient of Variation 12.5 % (11.5-14.5); RDW Standard Deviation 40.4 fL (36.4-46.3); Red Blood Count 3.89 M/uL (4.7-6.1); White Blood Count 12.05 K/uL (4.8-10.8)
[2019-09-09 06:35] LABS: BUN Creatinine Ratio 20.5 (10-20); Calcium 8.6 mg/dl (8.5-10.1); Creatinine Clr Calc Pharmacy 104.7 ml/min; Est GFR (African American) 104.6; Est GFR (Non-African American) 90.3; Potassium 4.1 mmol/L (3.5-5.1)
--- NOTE | 2019-09-09 07:21 | Orthopedic Progress Note ---
Date of Service September 09, 2019 Assessment & Plan (1) Primary osteoarthritis of right knee: POD#1 Right TKA -Pain management -PT/OT -DVT prophylaxis-SCDs, TEDs, ASA 81mg BID x 30 days -AM labs hemoglobin 11.2 from 13.5 acute blood loss anemia due to surgical loss and dilutional effect. White count mildly elevated. -D/C planning-home with HHPT likely later today as long as labs stable and PT goes well. Admission and Anticipated Discharge Date Admission Date: September 08, 2019 Subjective Patient resting in bed, comfortable. Pain is well controlled. Denies complaints. No chest pain, sob, light headedness, dizziness, n/v/d. Review of Systems Review of Systems: All systems reviewed & are unremarkable except as noted in HPI & below Physical Exam Physical Exam: Right knee is c/d/i, no calf tenderness. Distally n/v status and sensation is intact. Toes mobile. Good dorsiflexion. Constitutional: well developed and well nourished; no acute distress Results & Data ([facility]) Vital Signs (Past 12 Hours) Vital Signs Temp Pulse Resp BP Pulse Ox 09/09/19 03:56 36.7 C 94 H 19 119/72 95 09/08/19 23:21 37.3 C 93 H 14 116/67 93 Laboratory Results H & H 09/09/19 Range/Units 05:44 Hgb 11.2 L (14.0-18.0) g/dL Hct 34.1 L (42-52) %
[2019-09-09] MEDS: NAPROXEN 250 MG TAB PO SCH (08:14)
[2019-09-09] MEDS: ASPIRIN 81 MG ECTAB PO SCH (08:14)
[2019-09-09] MEDS: DOCUSATE SODIUM 100 MG CAP PO SCH (08:14)
[2019-09-09] MEDS ORDERED: MULTIVITAMIN TAB PO SCH ×2 (09:00)
--- NOTE | 2019-09-09 18:02 | Discharge Summary ---
Date of Service September 09, 2019 Admission HPI Per Admitting Provider Patient is a 58 year old male with no significant past medical history who presents to the office with bilateral knee pain. Pain is affecting his ability to carry out daily and leisure activities. He has failed conservative measures including anti-inflammatory medications, cortisone injections, and viscoelastic injections. He would like to proceed with right knee replacement. He underwent left total knee replacement on 08/11/19 and is doing well. Patient denies headaches, sweats, fevers, chills, double vision, blurred vision, cough, sore throat, dysphagia, chest pain, sob, wheezing, n/v/d/c, numbness, tingling, fa tigue, urinary symptoms, mood disorders. ROS positive for right knee pain and stiffness. Admission Exam Per Admitting Provider Constitutional: well developed and well nourished; no acute distress Eyes: PERRL, conjunctivae normal, anicteric sclerae ENMT: external ear and nose normal, oropharynx normal Neck: trachea midline, no thyromegaly Respiratory: normal respiratory effort, lungs clear to auscultation Cardiovascular: RRR, no murmur, no edema Musculoskeletal: Right knee: Tenderness medial joint line. ROM 5-125 with crepitus. Stable to valgus and varus stress tests. Positive Nelly's. Varus alignment Skin: no rashes, warm and dry Neurologic: patellar DTR's 2+ bilat, sensation intact Psychiatric: A+Ox3, euthymic affect Principal Diagnosis Right knee osteoarthritis Discharge Exam Constitutional well developed and well nourished; no acute distress Eyes PERRL, conjunctivae normal, anicteric sclerae ENMT external ear and nose normal, oropharynx normal Neck trachea midline, no thyromegaly Respiratory normal respiratory effort, lungs clear to auscultation Cardiovascular RRR, no murmur, no edema Skin no rashes, warm and dry Neurologic patellar DTR's 2+ bilat, sensation intact Psychiatric A+Ox3, euthymic affect Discharge Data Allergies Allergy/AdvReac Type Severity Reaction Status Date / Time diclofenac Allergy Unknown ITCHY, Verified 09/08/19 06:17 PASSED OUT Consultations 09/08/19 11:48 Consult Case Management - Discharge Planning Routine Procedures Performed Operation Date: 09/08/19 07:45 Actual Procedures p Right Total Knee Arthroplasty, Cemented(Right) - Richie Pena MD Ordered Studies 09/08/19 05:00 US - OR guided needle placemen Routine Hospital Course (1) Primary osteoarthritis of right knee: Patient presented for same day admission following right total knee arthroplasty on 09/08/19. He tolerated procedure well. The Patient had an uneventful hospital course. Post-operatively, his activity was progressed and well tolerated. They participated in PT with ambulation distance of 250+ feet. ROM of operative knee reached 75 degrees. Labs remained stable- lowest hemoglobin recorded: 11.2. Pain controlled on oral medications. Please refer to daily progress notes and PT notes for complete details. After exam on 09/09/19, patient was felt to be stable for discharge home with home health PT. Patient will f/u in the office in about 2 weeks for further evaluation including x-rays and incision check, sooner if having any issues or concerns. POD#1 Right TKA -Pain management -PT/OT -DVT prophylaxis-SCDs, TEDs, ASA 81mg BID x 30 days -AM labs hemoglobin 11.2 from 13.5 acute blood loss anemia due to surgical loss and dilutional effect. White count mildly elevated. -D/C planning-home with HHPT likely later today as long as labs stable and PT goes well. Lab Results 09/08/19 09/09/19 09/09/19 Range/Units 06:22 05:44 05:44 WBC 12.05 H (4.8-10.8) K/uL RBC 3.89 L (4.7-6.1) M/uL Hgb 11.2 L (14.0-18.0) g/dL Hct 34.1 L (42-52) % MCV 87.7 (80-100) fL MCH 28.8 (25-34) pg MCHC 32.8 (32-36) g/dL RDW Std Deviation 40.4 (36.4-46.3) fL RDW Coeff of Rob 12.5 (11.5-14.5) % Plt Count 250 (130-400) K/uL MPV 9.2 (7.4-10.4) fL Sodium 138 (136-145) mmol/L Potassium 4.1 (3.5-5.1) mmol/L Chloride 107 (98-107) mmol/L Carbon Dioxide 26 (21-32) mmol/L Anion Gap 5.0 (3-11) BUN 19 H (7-18) mg/dl Creatinine 0.94 (0.6-1.4) mg/dl Est Cr Clr Drug Dosing 104.7 ml/min Est GFR ( Amer) 104.6 Est GFR (Non-Af Amer) 90.3 BUN/Creatinine Ratio 20.5 H (10-20) Glucose 112 H (70-99) mg/dl Calcium 8.6 (8.5-10.1) mg/dl Blood Type A Positive Antibody Screen NEGATIVE Total Time Total Time Spent Total Time Spent (In Minutes): 20 Discharge Plan Discharge Items Patient Disposition: Home - Home Health Services Reason For Visit: RIGHT KNEE OSTEOARTHRITIS Discharge Diagnosis: Right knee osteoarthritis Activity: Per Instructions section Non-emergency contact: Surgeon Call non-emergency contact if: you have any medication questions, your pain is not controlled, your pain is unusual for you, your pain is concerning for you, you have a fever, your temperature is above 101, your wound has increased redn ess, your wound has increased drainage and your wound pain has increased Follow-up/Referrals: Angelina Mendez DO [Primary Care Provider] - Diet: Regular Addtl Attending Provider Instructions: ACTIVITY RECOMMENDATIONS: SELF CARE INSTRUCTIONS AFTER TOTAL KNEE REPLACEMENT A. You may need to continue a physical therapy program after discharge from the hospital. There are several options available to you. Your doctor will assist you in selecting the best one for you. 1. An out-patient facility 2 to 3 times a week for therapy or home therapy. 2. Continue working on all exercises taught to you in the hospital. Your goals should be to increase bending of your knee to 90 degrees and beyond and to fully straighten your knee. B. You may progress at your own pace from walking with a walker or crutches to a cane; then to no assistive devices. C. Make walking a part of your daily routine. Be up as much as comfortable with rest periods throughout the day. Rest with leg elevation is very important. Use the ice wrap frequently for the first 3-4 weeks. D. There are no restrictions on activities. You may ride in a car, shop, participate in wash operator and all social activities. E. Wear the long elastic stockings (JAYSON hose) 20 hours a day for 2 weeks after surgery. They can be removed several times a day for laundering and for a bath. F. You may shower, no tub baths until cleared by your doctor. SPECIAL CARE INSTRUCTIONS: VERY IMPORTANT TO READ AND REVIEW A. There are a few signs you need to watch for after you are home. Call [facility] if you notice any of the followin. Increased severe knee pain. Some pain is expected especially when you exercise. 2. Increased swelling in your leg or knee; pain or swelling of the calf muscle in either lower leg. 3. Any fluid drainage from the incision. 4. Shortness of breath or chest pain. B. Please call [facility] at if you have any concerns or questions about your operation or recovery. The doctor or his nurse will return your call promptly. C. You must take antibiotics before dental work, bladder, bowel or other surgery. Your doctor will provide you with a permanent care to carry describing this precaution. IMPORTANT: * REMEMBER TO TAKE ASPIRIN, 81 MG, TWICE DAILY FOR 4 WEEKS UNLESS OTHERWISE DIRECTED. THIS IS YOUR BLOOD THINNER. * HIGH RISK PATIENTS MAY BE PRESCRIBED A STRONGER BLOOD THINNER. THIS WILL BE PROVIDED AT DISCHARGE. * CALL IF INCREASED PAIN, REDNESS, DRAINAGE OR FEVER GREATER THAT 101. * WEAR JAYSON HOSE 20 HOURS PER DAY FOR 2 WEEKS. This is a large suction dressing covering your incision. This will help pull any excess drainage from the wound and allow your incision to heal properly. You may shower with this if you can keep the unit outside of the shower. If any bleeding or leakage is noted please call your doctor's office. This will remain on your incision for 7 days and then should be removed. This can be done yourself or by the home nursing staff if applicable. The entire unit is disposable once removed. Once removed, keep incision clean and dry. If redness or drainage is noted, please call your surgeon. FOLLOW UP VISIT: If appointment is not already scheduled: Please call [facility] to make a follow-up appointment for 2 weeks after your surgery at . Pending Studies at Discharge: No Stand-Alone Forms: My [employer], Smoking Cessation Medications and DC Order Prescriptions: New aspirin 81 mg Tablet,Delayed Release (Dr/Ec) 81 mg PO BID Qty: 60 RF: 0 acetaminophen 500 mg Tablet 1,000 mg PO Q8 Qty: 60 RF: 0 oxycodone 5 mg Tablet 5 - 10 mg PO .Q4H-6H PRN (Reason: pain) Qty: 30 RF: 0 Continued multivitamin Tablet 1 tab PO DAILY RF: 0 naproxen 500 mg tablet 500 mg PO BID RF: 0 Discontinued aspirin 81 mg Tablet,Delayed Release (Dr/Ec) 81 mg PO BID Qty: 60 RF: 0 acetaminophen 500 mg tablet 1,000 mg PO UD PRN (Reason: Pain) RF: 0 oxycodone 5 mg tablet 5 - 10 mg PO UD MDD 6 PRN (Reason: pain) RF: 0 Discharge Orders: Discharge Order (Routine); Ordered 09/09/19 Ordered By: Ismael Camacho Admission Data Admit Date/Time: 09/08/19 12:09 Attending Provider: Richie Pena Admit Provider: Richie Pena Primary Care Provider: Angelina Mendez Other Providers: [facility],Home Healthcare Other Interventions: Discharge Summary Assessment (RN) Last Done: 09/09/19 08:01 DC Date/Time DO NOT enter until pt leaves facility: 09/09/19 11:59
== END 2019-09-09 11:59 | disposition home health service (06) | DRG 470 ==
LOC: ASU 05:46 → 3N 12:09